=== PATIENT | male | born 1970 | race African-American/Black ===

== ENCOUNTER 2020-03-15 17:52 | Observation (INO) ==
[2020-03-15] MEDS ORDERED: ALBUTEROL/IPRATROPIUM 3 ML NEB RESP TX STA (18:10)
[2020-03-15] MEDS ORDERED: FUROSEMIDE 40 MG/4 ML VIAL IV STA (18:10)
[2020-03-15 18:50] LABS: Basophils % 0.4 % (0.0-0.8); Eosinophils % 0.3 % (0.00-10.9); Hematocrit 46.2 VOL% (42.0-52.0); Hemoglobin 14.9 GM/DL (14.0-18.0); Immature Granulocytes % 0.3 %; Immature Granulocytes Absolute 0.02 #; Lymphocytes # 1.5 10*3/uL (1.4-4.0); Lymphocytes % 21.2 % (21.2-54.2); Mean Corpuscular HGB Conc 32.3 GM/DL (32-36); Mean Corpuscular Volume 97.1 FL (87-102); Mean Platelet Volume 10.3 FL (9.6-12.0); Monocytes % 8.9 % (1.7-12.7); Neutrophils % 68.9 % (38.7-73.9); Platelet Count 228 T/CUMM (130-400); Red Blood Count 4.76 MC/CUMM (3.8-5.5); Red Cell Distribution Width 13.2 % (9.3-17.3); White Blood Count 7.2 T/CUMM (4-12)
[2020-03-15 19:06] LABS: INR 1.3; PT Patient Result 13.6 SECS (9.8-11.9); Partial Thromboplastin Time 26.9 SECS (23.9-33.8)
[2020-03-15 19:16] LABS: Alanine Aminotransferase 15 U/L (16-61); Albumin 2.6 G/DL (3.4-5.0); Alkaline Phosphatase 110 U/L (45-117); Aspartate Amino Transferase 17 U/L (0-37); Blood Urea Nitrogen 20 MG/DL (7-18); Calcium 8.3 MG/DL (8.5-10.1); Estimated Glom Filtration Rate 113 ML/MIN; Ferritin 102.7 ng/ml (26-388); Glucose 111 MG/DL (74-106); Total Protein 7.4 G/DL (6.4-8.3); Troponin I 0.054 NG/ML (0.00-0.045)
[2020-03-15 19:32] LABS: Apearance,Urine CLEAR (Clear); Bilirubin,Urine Negative (Negative); Blood, Urine Small mg/dL (Negative); Glucose,Urine (UA) Negative (Negative); Ketones,Urine Negative (Negative); Mucus,Urine Occasional /LPF (Occasional); Nitrite,Urine Negative (Negative); Protein,Urine 100 MG/DL; RBC,Urine <1 /HPF (0-4); Urine Color Yellow (Yellow); WBC,Urine <1 /HPF (0-6)
[2020-03-15 19:38] LABS: Barbiturates Screen,Urine Negative (Negative); Benzodiazepines Screen,Urine Negative (Negative); Cannabinoid Screen,Urine Positive (Negative); Opiate Screen,Urine Negative (Negative); Phencyclidine Screen,Urine Negative (Negative)
[2020-03-15] MEDS ORDERED: ALUMINUM/MAGNES/SIMETH MAX STR 30 ML UDCUP PO PRN (20:44)
[2020-03-15] MEDS ORDERED: ACETAMINOPHEN 325 MG TABLET PO PRN (20:44)
[2020-03-15] MEDS ORDERED: ONDANSETRON 4 MG/2 ML VIAL IV PRN (20:44)
[2020-03-15] MEDS ORDERED: GLUCAGON 1 MG VIAL IM PRN (20:44)
[2020-03-15] MEDS ORDERED: hydrALAZINE 20 MG/1 ML VIAL IV PRN (20:50)
[2020-03-15] MEDS ORDERED: guaiFENesin/DM ER 600-30 MG TABLET PO PRN (20:50)
[2020-03-15] MEDS ORDERED: diphenhydrAMINE CAP 25 MG CAPSULE PO PRN (20:50)
[2020-03-15] MEDS ORDERED: NICOTINE 21 MG/24 HR PATCH TRANSDERM PRN (20:50)
[2020-03-15] MEDS ORDERED: DEXTROSE 10% 250 ML BAG IV PRN (21:10)
[2020-03-15 22:05] LABS: Risk Ratio 4.76; Thyroid Stimulating Hormone 2.31 uIU/ml (0.358-3.74); VLDL CHOLESTEROL 19.2 MG/DL
[2020-03-15] MEDS: ENOXAPARIN 40 MG/0.4 ML SYRINGE SUBCUT SCH (22:54)
[2020-03-16] MEDS: ALBUTEROL/IPRATROPIUM 3 ML NEB RESP TX SCH ×4 (01:03→19:17)
[2020-03-16] MEDS: FUROSEMIDE 20 MG/2 ML VIAL IV SCH ×2 (09:01→16:52)
[2020-03-16] MEDS: buPROPion 75 MG TABLET PO SCH ×2 (09:58→21:24)
[2020-03-16] MEDS: carvediloL 3.125 MG TABLET PO SCH ×2 (12:42→17:00)
[2020-03-16] MEDS ORDERED: traZODone 50 MG TABLET PO SCH (21:00)
[2020-03-16] MEDS: ENOXAPARIN 40 MG/0.4 ML SYRINGE SUBCUT SCH (21:24)
[2020-03-17] MEDS: ALBUTEROL/IPRATROPIUM 3 ML NEB RESP TX SCH ×3 (01:17→14:24)
[2020-03-17] MEDS: carvediloL 3.125 MG TABLET PO SCH ×3 (01:34→12:00)
[2020-03-17 06:55] LABS: Albumin 2.5 G/DL (3.4-5.0); Bilirubin,Total 1.2 MG/DL (0.2-1.0); Calcium 8.6 MG/DL (8.5-10.1); Osmolality,Calculated 276.8 MOS/KG (273-304); Total Protein 6.8 G/DL (6.4-8.3)
[2020-03-17] MEDS: FUROSEMIDE 20 MG/2 ML VIAL IV SCH (09:12)
[2020-03-17] MEDS: buPROPion 75 MG TABLET PO SCH (09:12)
[2020-03-17 12:19] VITALS: BP 120/60
== END 2020-03-17 15:59 | disposition home or self-care (01) ==
LOC: N.EDINP 17:52 → N.ED 17:52 → SUATTDRO 20:44 → N.TELES 21:54
PROVIDERS: ADMIT Internal Medicine; ATTEND Internal Medicine